=== PATIENT | female | born 1995 | race Caucasian/White ===

== ENCOUNTER 2022-10-19 13:54 | Outpatient (RCR) | payer OTHER, SELFPAY ==
[2022-10-19 15:38] LABS: Hematocrit 33.3 % (37.0-47.0); Hemoglobin 11.3 g/dL (12.0-15.0)
[2022-10-19 15:49] LABS: Glucose 1 Hour PP 50gm Dose 96 mg/dL
[2022-10-19 16:30] LABS: HIV 1/2 Ab P24 Ag Result Negative (Negative)
[2022-10-21] MEDS: RHO(D) IMMUNE GLOBULIN 300 MCG/2 ML SYRINGE IM (14:48)
== END 2023-01-17 23:59 | disposition home or self-care (01) ==
LOC: ANHLAB 13:54
PROVIDERS: Visit Provider Obstetrics & Gynecology
DX: Z11.4 Encounter for screening for human immunodeficiency virus [HIV] (principal); Z29.13 Encounter for prophylactic Rho(D) immune globulin; O36.0190 Maternal care for anti-D [Rh] antibodies, unspecified trimester, not applicable or unspecified; Z3A.00 Weeks of gestation of pregnancy not specified
CPT/HCPCS: 36415; 82947; 85014; 85018; 85461; 86703; 86850; 86900; 86901; 90384; 96372; G0432; J2790

== ENCOUNTER 2022-12-15 07:36 | Outpatient (CLI) | payer OTHER, SELFPAY ==
[2022-12-15] VITALS (9 sets, daily range): BP systolic 106–133; BP diastolic 63–91; PULSE 88–101
[2022-12-15] MEDS: TERBUTALINE SULFATE 1 MG/ML VIAL 0.25 MG SUB-Q (09:10)
--- NOTE | 2022-12-15 09:26 | WPDOBADMIT ---
Obstetrics - Admit Note Admission Note: 27 y/o G1 at 37 1/7 weeks gestation with breech presentation, here for external cephalic version. Rh neg. AVSS NST reactive TOCO: rare contractions ABD soft, nontender, gravid EXT nontender Imaging: Bedside ultrasound exam shows shona breech presentation with head on maternal right, fundal placenta, adequate AFV. Procedure: After informed consent was obtained, she was given terbutaline 0.25 mg sc x 1. Under ultrasound guidance, ECV was attempted. The breech was elevated out of the maternal pelvis. A counterclockwise somersault was attempted, then clockwise. Attempts were not successful, and attempts at ECV were abandoned. cardiac motion was normal throughout. The patient had discomfort during the procedure, but felt fine afterward. A: IUP at 37 1/7 weeks with breech presentation. Rh Neg. P: Observe with NST, administer Rhogam, then home to f/u next week. Reviewed instructions / precautions.
[2022-12-15] MEDS: RHO(D) IMMUNE GLOBULIN 300 MCG/2 ML SYRINGE IM (10:10)
== END 2022-12-15 10:18 | disposition home or self-care (01) ==
LOC: ANHOBOP 07:40 → ANHOBPP 07:40
PROVIDERS: Visit Provider Obstetrics & Gynecology
DX: O32.1XX0 Maternal care for breech presentation, not applicable or unspecified (principal); Z3A.00 Weeks of gestation of pregnancy not specified
CPT/HCPCS: 36415; 85461; 86850; 86880; 86900; 86901; 90384; 96372; 99199; J2790; J3105

== ENCOUNTER 2022-12-29 13:21 | Outpatient (CLI) | payer OTHER, SELFPAY ==
[2022-12-29 14:13] LABS: Hematocrit 32.9 % (37.0-47.0); Hemoglobin 10.6 g/dL (12.0-15.0); Mean Corpuscular HGB Conc 32.2 g/dl (32-36); Mean Corpuscular Hemoglobin 29.3 pg (26-34); Mean Corpuscular Volume 90.9 fl (80-100); Mean Platelet Volume 11.6 fl (7.4-10.4); Platelet Count Result 199 k/mm3 (150-375); Red Blood Count 3.62 M/mm3 (4.2-5.4); Red Cell Distribution Width 12.1 % (11.5-14.5); White Blood Count 10.4 K/mm3 (4.5-10.0)
[2022-12-30 10:43] LABS: Rapid Plasma Reagin Non-Reactive (NonReactive)
== END 2022-12-29 13:22 | disposition home or self-care (01) ==
LOC: ANHLAB 13:23
PROVIDERS: Visit Provider Obstetrics & Gynecology
DX: Z34.93 Encounter for supervision of normal pregnancy, unspecified, third trimester (principal); Z3A.00 Weeks of gestation of pregnancy not specified
CPT/HCPCS: 36415; 85027; 86592; 86850; 86880; 86900; 86901; 86902

== ENCOUNTER 2022-12-30 09:56 | Inpatient (IN) | payer OTHER, SELFPAY ==
[2022-12-30] VITALS (49 sets, daily range): BP systolic 104–136; BP diastolic 51–109; PULSE 53–93; RESP 14–20; TEMP 36.4–36.6; O2SAT 94–100; BMI 29.1
--- NOTE | 2022-12-30 08:38 | WPDANESEPP ---
Anes - Eval Pre Procedure Procedure: Operation Date: 12/30/22 12:00 Proposed Procedures p Section - Mayur Tinoco MD Date/Time: 12/30/22 08:38 Surgeon: Dr Tinoco Preop Diagnosis: Breech Presentation Pre Op Diagnosis: pre admit Patient Data Age: 27 Gender: F Height: Weight: Allergies Allergy/AdvReac Type Severity Reaction Status Date / Time shellfish derived Allergy Swelling Verified 12/07/22 14:32 of Lip/Tongue/Throat Home Medications Medication Instructions Recorded Confirmed Type vit#24-iron amino acid 1 tablet PO DAILY 12/07/22 12/07/22 History chelat-folic acid 30 mg-975 mcg tablet Patient hx anesthesia problems: none Family hx anesthesia problems: none Results Review: All pre-operative results and documents have been reviewed as part of the pre-operative evaluation. [facility] Past Medical History Medical History Anxiety Irritable bowel syndrome (IBS) Family History Family History Father Diabetes mellitus Mother Anemia Grandparent Diabetes mellitus Social History Social History Substance use: never Spiritual care concerns: No Exam Day of Procedure 12/30/22 08:38
--- NOTE | 2022-12-30 10:13 | LDADM ---
This patient, Makenzie Cohen, was admitted to Labor/Delivery/Recovery 120 on 12/30/22 at 09:56. Plans for labor, pain management and were discussed with patient. Patient/family oriented to hospital policies and general routines including ID bracelet, bed and alarms, visiting hours, pain management, procedures, bathroom and other care routines, personal items, smoking policy, room service/diet and guest tray routines, security routines, and visiting hours. Patient/Family are encouraged to report perceived risks to care and to ask questions if they do not understand what they are told or what they should do. See OBIX for further documentation.
[2022-12-30] MEDS: LACTATED RINGERS 1,000 ML 125 ML IV CONT ×2 (10:26→11:20)
--- NOTE | 2022-12-30 11:18 | PM.IMHP ---
H&P: HPI History of Present Illness Date/Time: 12/30/22 11:50 Chief Complaint: Here for c section Narrative: 27 y/o G1 at 39 2/7 weeks here for scheduled delivery for breech presentation. GBS bacteruria. Attempted ECV, but was unsuccessful two weeks ago. Review of Systems Review of Systems: All systems reviewed & are unremarkable except as noted in HPI and below PMFSH Past Medical History Medical History Anxiety Irritable bowel syndrome (IBS) Family History Family History Father Diabetes mellitus Mother Anemia Grandparent Diabetes mellitus Social History Social History Smoking status: Never smoker Substance use: never Lack of Transportation: No Lack of Food: Never True Current Housing: I Have Housing Concerned About Future Housing: No Difficulty Paying Gas/Electric Bills: No Difficulty Paying for Meds: No Currently Unemployed: No Education: High School Diploma/GED Difficulty w/ Childcare or Family Care: No Spiritual care concerns: No Meds Home Medications and Allergies Home Medications Medication Instructions Recorded Confirmed Type vit#24-iron amino acid 1 tablet PO DAILY 12/07/22 12/07/22 History chelat-folic acid 30 mg-975 mcg tablet Allergies Allergy/AdvReac Type Severity Reaction Status Date / Time shellfish derived Allergy Swelling Verified 12/07/22 14:32 of Lip/Tongue/Throat Vital Signs Vital Signs - 24 hr 12/30/22 10:12 12/30/22 10:28 Temperature 36.6 C Pulse Rate 87 Respiratory Rate 18 Blood Pressure 104/65 Oxygen Delivery Room Air Exam Const: Orientation/consciousness: patient oriented x3 Other: Well-developed, well-nourished female in no acute distress. Neck: Thyroid: thyroid normal Lymphatic: no lymphadenopathy noted (in neck, axilla or inguinal nodes) Resp: Effort & Inspection: normal respiratory effort Auscultation: clear to auscultation bilaterally Cardio: Rate: regular rate Rhythm: regular rhythm Heart sounds: S1 normal heart sound present and S2 normal heart sound present GI: Other: ABD: Soft, nontender, nondistended, gravid. NST reactive. Irregular contractions. No guarding or rebound tenderness. No hepatosplenomegaly. Bedside ultrasound exam by me confirms breech presentation. : General: Yes no CVA tenderness Other: External genitalia: normal female hair distribution, without lesion. Urethral meatus: no lesion, non prolapsed. Bladder: no mass, nontender Vagina: well-estrogenized, without lesion or discharge. No cystocele or rectocele. Cervix: no lesion or discharge. Uterus: small, anteverted, freely mobile, nontender Adnexa: no mass or tenderness. Anus/perineum: no lesions, nontender Back/Spine/Pelvis: Back: no CVA tenderness Skin: General skin exam: normal color and no rashes or lesions noted Neuro: General: patient oriented x3 Extrem: Other: Extremities: nontender with no edema Psych: Mental Status: mental status grossly normal Affect: normal affect Assessment and Plan Assessment and plan (1) Term : Code(s): Z34.90 - Encounter for supervision of normal , unspecified, unspecified trimester Status: Acute Assessment and Plan: A: IUP at term with persistent breech presentation. P: Offered repeat . She understands risks of surgery to include risks of anesthesia, risks of pain, infection, bleeding, blood products, thromboembolic phenomena and damage to adjacent structures such as bowel, bladder, ureters, blood vessels and nerves. She understands all these risks and elects to proceed with surgery. (2) Breech presentation of fetus: Code(s): O32.1XX0 - Maternal care for breech presentation, not applicable or unspecified
--- NOTE | 2022-12-30 11:52 | WPDHPUPDATE1 ---
History and Physical Update Update Date/Time: 12/30/22 11:52 History and Physical has been reviewed, including an updated exam of the patient. There are NO changes in the patient's condition. Risks, benefits, and alternatives have been discussed and questions answered. Patient agrees to proceed with procedure.
--- NOTE | 2022-12-30 11:54 | WPDANESEPPF ---
Anes - Initial Pre Proc Eval Procedure: Operation Date: 12/30/22 12:00 Proposed Procedures p Section - Mayur Tinoco MD Date/Time: 12/30/22 11:54 Surgeon: Mayur Tinoco MD Pre Op Diagnosis: c/s Patient Data Age: 27 Gender: F Height: 1.73 m Weight: 87 kg Last Vital Signs Temp 36.6 C 12/30/22 10:28 Pulse 87 12/30/22 10:28 Resp 18 12/30/22 10:28 BP 104/65 12/30/22 10:28 O2 Del Method Room Air 12/30/22 10:12 Allergies Allergy/AdvReac Type Severity Reaction Status Date / Time shellfish derived Allergy Swelling Verified 12/07/22 14:32 of Lip/Tongue/Throat Home Medications Medication Instructions Recorded Confirmed Type vit#24-iron amino acid 1 tablet PO DAILY 12/07/22 12/07/22 History chelat-folic acid 30 mg-975 mcg tablet Patient hx anesthesia problems: none Family hx anesthesia problems: none Results Review: All pre-operative results and documents have been reviewed as part of the pre-operative evaluation. [facility] Past Medical History Medical History Anxiety Irritable bowel syndrome (IBS) Family History Family History Father Diabetes mellitus Mother Anemia Grandparent Diabetes mellitus Social History Social History Smoking status: Never smoker Substance use: never Lack of Transportation: No Lack of Food: Never True Current Housing: I Have Housing Concerned About Future Housing: No Difficulty Paying Gas/Electric Bills: No Difficulty Paying for Meds: No Currently Unemployed: No Education: High School Diploma/GED Difficulty w/ Childcare or Family Care: No Spiritual care concerns: No Anes - Eval Final PreProcedure Day of Procedure 12/30/22 11:54 Patient weight: overweight Heart: regular rate and rhythm Lungs: clear to auscultation Airway: Mallampati scale class 1 Neurological: alert and oriented Last oral intake: >/= 8 hours ASA classification: II Emergent: no Anesthetic plan: proceed Anesthesia type and monitoring: regional spinal and standard monitoring Results Review: All pre-operative results and documents have been reviewed as part of the pre-operative evaluation. Informed Consent: The patient's anesthetic plan and its attendant risks and benefits were discussed with the patient/family/POA. Questions were solicited and answers provided to the satisfaction of the patient/family/POA.
[2022-12-30] MEDS: ceFAZolin 2 GM/D5W 50 ML 2 GM/50 ML BAG IVPB (12:05)
--- NOTE | 2022-12-30 12:57 | PM.OBPRVD ---
OB - Delivery Note Procedure Delivery date: 12/30/22 Procedure: Procedures Operation Date: 12/30/22 12:00 <No data on this case meets the specified criteria> Primary low transverse delivery Events: Breech Presentation and Positive Group B Strep (GBS) Delivery monitor: External FHT and External Uterine Route of delivery: Specimen: Yes (cord blood) Quantitative Blood Loss (ml): 320 Anesthesia type: Spinal Disposition: PACU Complications: None Narrative: The patient was taken to the operating room where she was prepared and draped in the usual sterile fashion in dorsal supine position with a leftward tilt. She received cefazolin preoperatively. Spinal anesthesia was found to be adequate. A Pfannenstiel skin incision was made and carried through to the underlying layer of the fascia. The fascia was incised in the midline and the incision was extended laterally. The fascia was dissected free of the underlying rectus muscles. The rectus muscles were in the midline. The peritoneum was identified, tented up and entered sharply. The peritoneal incision was extended superiorly and inferiorly with good visualization of the bladder. The bladder blade was placed. The vesicouterine peritoneum was identified, tented up and entered sharply. The incision was extended laterally and the bladder flap was developed. The bladder blade was replaced. The uterus was then incised sharply in a transverse fashion along the lower uterine segment. The incision was extended laterally. The infant's breech was delivered to the level of the scapulae. The arms were swept across the chest and delivered. The head was gently flexed and easily delivered. The nose and mouth were bulb suctioned. After a delay, the cord was clamped and cut. The was handed off the field. Cord blood was collected. The placenta was removed manually and was passed off the field. The uterus was exteriorized and cleared of all clots and debris. The uterine incision was reapproximated using 0 Monocryl in a running, locked fashion. A second, imbricating layer of the same suture was run. Excellent hemostasis resulted as did excellent reapproximation of the normal anatomy. The uterus was returned the abdomen. The pelvis was irrigated copiously with warmed normal saline. Rigorous hemostasis was assured. The fascial layer was reapproximated using 0 Vicryl in a running fashion. The skin was closed with a running, subcuticular stitch of 4 0 Vicryl. Dermaflex was applied externally. Sponge, lap, needle and instrument counts were correct. The patient was taken to the recovery room in stable condition. The infant went to the nursery in stable condition. I was present and scrubbed the entire procedure. Baby Date of : 12/30/22 Time of : 12:29 Weeks of gestation at delivery: 39 Infant gender: Female Weight (pounds): 7 Weight (ounces): 9 presentation: shona breech Placenta delivery description: Manual Removal and Normal Configuration Cord Vessel Description: 3 Vessels and Delayed Cord Clamping score one minute: 8 score five minutes: 9
--- NOTE | 2022-12-30 13:00 | PM.OBDSVD ---
DS: Admitting Diagnosis Discharge Date 01/03/23 Admitting Diagnosis IUP at 39 2/7 weeks Breech presentation GBS bacteruria DS: Discharge Diagnosis Discharge Diagnosis (1) delivery delivered: Code(s): O82 - Encounter for delivery without indication Status: Acute (2) GBS bacteriuria: Code(s): R82.71 - Bacteriuria Status: Acute OB - DS: Summary OB Procedures : NST and Ultrasound OB Procedures Intrapartum: OB Procedures: : None Peripartum Data Procedures: Procedures Operation Date: 12/30/22 12:00 <No data on this case meets the specified criteria> Primary LTCS Time Spent with Patient Time attestation: Total time spent providing and/or coordinating discharge services: Discharge Plan Discharge Attending physician on discharge: Mayur Tinoco Discharging Clinician: Mayur Tinoco Patient Disposition: Home, Self-Care Activity: may shower, may drive after 2 weeks and pelvic rest Diet: regular Wound Care Instructions: incision open to air Discharge Instructions: Call or return if temperature above 100.4? F, increased abdominal pain, increased vaginal bleeding or any new problems. Stand Alone Forms: General Discharge Information Follow-up/Referrals: Mayur Tinoco MD [Physician] - 4 Weeks Discharge Medications: New hydrocodone-acetaminophen 5-325 mg tablet 1 - 2 tablet PO Q6H PRN (Reason: pain) Qty: 30 0RF ibuprofen 600 mg tablet 600 mg PO Q6H PRN (Reason: cramps) Qty: 30 0RF ferrous sulfate 325 mg (65 mg iron) tablet 325 mg PO DAILY Qty: 30 0RF Continued Complete 30-975 mg-mcg Tablet 1 tablet PO DAILY Date of admission: 12/30/22 09:56 Primary Care Provider: PHYSICIAN,PROFESSOR OF BIBLICAL STUDIES Admitting Provider: Mayur Tinoco Attending physician on admission: Mayur Tinoco Condition: Stable
[2022-12-30] MEDS: fentaNYL CITRATE INJ (*CRX) 100 MCG/2 ML VIAL 25 MCG IV PUSH (13:10)
[2022-12-30] MEDS: OXYTOCIN 30 UNITS/NS 500 ML 30 UNITS/500 ML BAG 125 UNITS IV CONT (15:00)
--- NOTE | 2022-12-30 15:15 | PC.NURSE ---
Patient transferred to post room #284 via stretcher. Support person present. Oriented to unit, room, information board, rooming in, admission packet and security measures. Patient verbalizes understanding.
[2022-12-30] MEDS: ONDANSETRON INJ 4 MG/2 ML VIAL IV PUSH ×2 (15:18→19:00)
[2022-12-30] MEDS: LIDOCAINE 5% PATCH 1 PATCH TRANSDERM (17:06)
[2022-12-30] MEDS: KETOROLAC 30 MG/ML VIAL (*BKC) IV PUSH (17:06)
[2022-12-30] MEDS: DEXTROSE 5%/0.45% SOD CHL 1,000 ML 125 ML IV CONT (19:00)
[2022-12-30] MEDS: HYDROcodone/acetaminophen (*CRX) 5-325 MG TABLET 1 TAB PO (19:00)
[2022-12-31] MEDS: IBUPROFEN 600 MG TABLET PO ×3 (00:35→16:49)
[2022-12-31 03:10] VITALS: BP 116/69; PULSE 72; RESP 18; TEMP 36.9; O2SAT 100
[2022-12-31] MEDS: HYDROcodone/acetaminophen (*CRX) 5-325 MG TABLET 1 TAB PO ×3 (03:10→21:10)
[2022-12-31 04:59] LABS: Basophils Percent Auto 0.1 % (0.2-1.2); Eosinophils Percent Auto 0.2 % (0-4.4); Hematocrit 27.4 % (37.0-47.0); Hemoglobin 8.8 g/dL (12.0-15.0); Immature Granulocyte Absolute 0.11 K/mm3 (0.00-0.031); Immature Granulocyte Percent A 0.7 % (0-0.5); Lymphocytes Absolute Auto 1.94 K/mm3 (0.9-3.2); Lymphocytes Percent Auto 12.6 % (18.3-44.2); Mean Corpuscular HGB Conc 32.1 g/dl (32-36); Mean Corpuscular Hemoglobin 29.6 pg (26-34); Mean Corpuscular Volume 92.3 fl (80-100); Mean Platelet Volume 11.6 fl (7.4-10.4); Monocytes Absolute Auto 1.1 K/mm3 (0.1-0.6); Monocytes Percent Auto 6.9 % (2.6-8.5); Neutrophils Absolute Auto 12.2 K/mm3 (1.3-6.7); Neutrophils Percent Auto 79.5 % (45.5-73.1); Platelet Count Result 176 k/mm3 (150-375); Red Blood Count 2.97 M/mm3 (4.2-5.4); Red Cell Distribution Width 12.2 % (11.5-14.5); White Blood Count 15.4 K/mm3 (4.5-10.0)
[2022-12-31 08:15] VITALS: BP 114/63; PULSE 101; RESP 18; TEMP 37.1; O2SAT 100
[2022-12-31] MEDS: DOCUSATE SODIUM 100 MG CAPSULE PO ×2 (08:25→16:49)
[2022-12-31] MEDS: POLYSACCHARIDE IRON COMPLEX 150 MG CAPSULE PO ×2 (08:25→16:49)
[2022-12-31] MEDS: SIMETHICONE 80 MG TAB.CHEW PO (08:25)
[2022-12-31] MEDS: MULTIVIT/MIN/PREN/FOL AC/IRON TABLET 1 TAB PO (08:25)
--- NOTE | 2022-12-31 09:31 | WPDANLDPN2 ---
Anes-Prog Note L&D Date/Time: 12/31/22 09:31 Comfortable throughout: section Neuraxial method: spinal Epidural/Spinal procedure site: clean & non-tender Neuro status: Neuro function grossly intact. Cardiovascular status: normal Respiratory status: normal Airway patency: baseline Mental status: baseline Post-Op hydration status: normal Vital Signs: Last Vital Signs Temp 36.9 C 12/31/22 03:10 Pulse 72 12/31/22 03:10 Resp 18 12/31/22 03:10 BP 116/69 12/31/22 03:10 Pulse Ox 100 12/31/22 03:10 O2 Del Method Room Air 12/31/22 03:10 Pain score (VAS): 2/10 I/O: Intake & Output 12/30/22 12/31/22 12/31/22 23:59 07:59 15:59 Intake Total 250 2500 Output Total 1800 Balance 250 700 Post-procedural complaints: none Patient feedback: Patient satisfied with anesthetic care.
--- NOTE | 2022-12-31 09:32 | WPDANLDNPN2 ---
Anes-Prog Note L&D-Neuraxial Date/Time: 12/31/22 09:32 Neuraxial medications: intrathecal PF morphine Opiod-related complaints: none Patient feedback: Patient satisfied with post-operative pain management.
[2022-12-31] MEDS: RHO(D) IMMUNE GLOBULIN 300 MCG/2 ML SYRINGE IM (11:04)
[2022-12-31 11:57] VITALS: BP 111/59; PULSE 101; RESP 16; TEMP 36.6; O2SAT 100
--- NOTE | 2022-12-31 16:13 | PC.NURSE ---
[id number] Introductions were made, then consulted with patient to assess needs related to . Mother led the conversation with her?plans to feed?her infant and the?experience so far. Mother works well with her with encouragement and education. Encouraged understanding of the benefits of skin to skin (demonstrating unwrapping and placing upright on her chest), stimulating with massage touch, changing positions to encourage wakefulness, how to watch for early feeding cues, responsive feeding, feeding on demand (aiming for 8-12 times in 24 hours, about every 2-3 hours), milk production, building/maintaining a milk supply, duration of feeding, signs of adequate intake/output and how to record on the feeding sheet. Reviewed positioning and ear, shoulder, hip alignment, supporting the breast to facilitate a deep latch, asymmetrical latch (off-center), leading with the chin with a big, open, wide gape and body close to mother. Infant latched optimally to the left breast in football position. Education given to mother of how to visualize suck/swallow and listen for drinking at the breast. Infant was able to maintain latch without discomfort to mother. There were several attempts as infant at times would latch shallow and hurt mother's nipple. Nipple care reviewed with optimal latch and good positioning with no misshaped nipple after detaching infant from the breast. We practiced latching infant to the right breast using cross cradle hold, then settled with an optimal latch with the football hold at the right breast. Mother denied pain. Reviewed with mother how to visualize swallowing, how to detach if there's pain, latching deeply changing positioning for comfort and more swallowing for the infant. Reviewed good handwashing when or touching the breast/nipples to prevent infection. Resources used to facilitate learning were used with the tool, mom and baby guide. Mother voiced understanding of skin to skin, stimulating with massage touch, responsive feedings, talking to infant to encourage if it has been 2 -2.5 hours since the start of the last , to call if infant does not latch, or if there is discomfort with . Resources provided for inpatient/outpatient with feeding sheet, the name written on the communication board and the mom/baby guide. Parents voiced understanding of information, demonstrated learning and will call if there is a request for assistance. Reported to the Primary RN.
[2022-12-31] MEDS: LIDOCAINE 5% PATCH 1 PATCH TRANSDERM ×2 (17:00→21:10)
--- NOTE | 2022-12-31 17:26 | P.PNOB_ITS ---
OB - PN: Subj Subjective Date/time seen: 12/31/22 17:26 Narrative: Pain OK. Tolerating diet. OB - PN: Obj Data Labs 12/31/22 03:10 Labs: Laboratory Results - last 24 hr 12/31/22 03:10 WBC 15.4 H RBC 2.97 L Hgb 8.8 L Hct 27.4 L MCV 92.3 MCH 29.6 MCHC 32.1 RDW 12.2 Plt Count 176 MPV 11.6 H Immature Gran % (Auto) 0.7 H Neut % (Auto) 79.5 H Lymph % (Auto) 12.6 L [place] % (Auto) 6.9 Eos % (Auto) 0.2 Baso % (Auto) 0.1 L Lymph # (Auto) 1.94 [place] # (Auto) 1.1 H Eos # (Auto) 0.0 Baso # (Auto) 0.0 Abs Immat Gran (auto) 0.11 H Absolute Neuts (auto) 12.2 H Absolute Nucleated RBC 0.0 Nucleated RBC % 0.0 Blood Type AB Negative Antibody Screen TNP Screen Negative Baby's Blood Type B pos Baby's TONJA Positive Doses of RhIg Required 1 OB - PN A/P Plan day: 1 Comments: A: POD#1, doing well. P: Routine care. Exam Narrative: AVSS I/O OK ABD soft, nontender, fundus firm. Incision c/d/i. EXT nontender
[2022-12-31 21:10] VITALS: BP 119/71; PULSE 98; RESP 18; TEMP 36.7
[2023-01-01] MEDS: IBUPROFEN 600 MG TABLET PO ×4 (00:10→20:10)
[2023-01-01] MEDS: HYDROcodone/acetaminophen (*CRX) 5-325 MG TABLET 1 TAB PO ×7 (00:10→20:10)
[2023-01-01] MEDS: POLYSACCHARIDE IRON COMPLEX 150 MG CAPSULE PO ×2 (07:02→16:44)
[2023-01-01] MEDS: DOCUSATE SODIUM 100 MG CAPSULE PO ×2 (07:02→16:44)
[2023-01-01] MEDS: MULTIVIT/MIN/PREN/FOL AC/IRON TABLET 1 TAB PO (07:02)
[2023-01-01 08:10] VITALS: BP 119/57; PULSE 98; RESP 16; TEMP 36.5; O2SAT 100
--- NOTE | 2023-01-01 09:09 | PM.OBPNVD ---
OB - PN: Subj Subjective Date/time seen: 01/01/23 09:09 Narrative: Pain OK. Tolerating diet. OB - PN: Obj Data Labs 12/31/22 03:10 Labs: Laboratory Results - last 24 hr 12/31/22 03:10 Blood Type AB Negative Antibody Screen TNP Screen Negative Baby's Blood Type B pos Baby's TONJA Positive Doses of RhIg Required 1 OB - PN A/P Plan Comments: A: POD#2, doing well. P: Routine care. Exam Narrative: AVSS I/O OK ABD soft, nontender, fundus firm. Incision c/d/i. EXT nontender
[2023-01-01 20:06] VITALS: BP 106/64; PULSE 72; RESP 18; TEMP 36.6; O2SAT 100
[2023-01-01] MEDS: LIDOCAINE 5% PATCH 1 PATCH TRANSDERM (22:30)
[2023-01-02] MEDS: IBUPROFEN 600 MG TABLET PO ×3 (03:30→20:20)
[2023-01-02 08:05] VITALS: BP 113/70; PULSE 92; RESP 16; RESP 18; TEMP 36.3; O2SAT 99
[2023-01-02] MEDS: ACETAMINOPHEN 325 MG TABLET 650 MG PO ×2 (08:24→16:35)
[2023-01-02] MEDS: POLYSACCHARIDE IRON COMPLEX 150 MG CAPSULE PO ×2 (08:24→16:34)
[2023-01-02] MEDS: MULTIVIT/MIN/PREN/FOL AC/IRON TABLET 1 TAB PO (08:24)
[2023-01-02] MEDS: DOCUSATE SODIUM 100 MG CAPSULE PO ×2 (08:24→16:35)
--- NOTE | 2023-01-02 09:31 | PM.OBPNVD ---
OB - PN: Subj Subjective Date/time seen: 01/02/23 09:31 Narrative: Pain OK. Tolerating diet. OB - PN: Obj Data Labs 12/31/22 03:10 Labs: Laboratory Results - last 24 hr 12/31/22 03:10 Blood Type AB Negative Antibody Screen TNP Screen Negative Baby's Blood Type B pos Baby's TONJA Positive Doses of RhIg Required 1 OB - PN A/P Plan Comments: A: POD#3, doing well. P: Routine care. Time Spent With Patient Time with patient: less than 15 minutes Exam Narrative: AVSS I/O OK ABD soft, nontender, fundus firm. Incision c/d/i. EXT nontender
[2023-01-02 15:33] VITALS: BP 107/56; PULSE 97; RESP 18; TEMP 36.6; O2SAT 98
[2023-01-02 19:28] VITALS: BP 126/77; PULSE 78; RESP 18; TEMP 37.1; O2SAT 100
[2023-01-03] MEDS: ACETAMINOPHEN 325 MG TABLET 650 MG PO (08:08)
[2023-01-03] MEDS: DOCUSATE SODIUM 100 MG CAPSULE PO (08:09)
[2023-01-03] MEDS: POLYSACCHARIDE IRON COMPLEX 150 MG CAPSULE PO (08:09)
[2023-01-03] MEDS: MULTIVIT/MIN/PREN/FOL AC/IRON TABLET 1 TAB PO (08:09)
[2023-01-03 08:20] VITALS: BP 118/77; PULSE 74; RESP 16; TEMP 36.6; O2SAT 100
--- NOTE | 2023-01-03 09:10 | PM.OBPNVD ---
OB - PN: Subj Subjective Date/time seen: 01/03/23 09:10 Narrative: Pain OK. Tolerating diet. Would like to go home. OB - PN: Obj Data Labs 12/31/22 03:10 OB - PN A/P Plan Comments: A: POD#4, doing well. P: Home to f/u 4 weeks. Exam Narrative: AVSS ABD soft, nontender, fundus firm. Incision c/d/i. EXT nontender
--- NOTE | 2023-01-03 10:00 | PC.NURSE ---
Patient viewed the discharge video Mother & Baby Care, The First Two Weeks . Patient was given the opportunity and encouraged to ask questions. Patient verbalized understanding of information shared and has been given the mother/baby guide for home reference.
[2023-01-05 14:18] VITALS: BP 129/69; PULSE 96; RESP 18; TEMP 36.6; O2SAT 100
== END 2023-01-03 13:30 | disposition home or self-care (01) | DRG 788 ==
LOC: ANHLDR 13:02 → ANHOB2 15:42
PROVIDERS: Admitting Provider Obstetrics & Gynecology; Visit Provider Obstetrics & Gynecology
PROC: 10D00Z1 Extraction of Products of Conception, Low, Open Approach (ICD-10-PCS; CPT 59514; principal; 2022-12-30 12:00)
DX: O34.219 Maternal care for unspecified type scar from previous cesarean delivery (principal); Z23 Encounter for immunization; O32.1XX0 Maternal care for breech presentation, not applicable or unspecified; O99.824 Streptococcus B carrier state complicating childbirth; Z3A.39 39 weeks gestation of pregnancy; Z37.0 Single live birth
CPT/HCPCS: 36415; 85025; 85461; 86850; 86900; 86901; 90384; 90471; 90686; A9270; G0008; J0690; J1100; J1885; J2274; J2405; J2590; J2790; J3010; J7120

== ENCOUNTER 2024-09-11 14:10 | Outpatient (RCR) | payer OTHER, SELFPAY ==
[2024-09-11 15:29] LABS: Hematocrit 32.0 % (37.0-47.0); Hemoglobin 10.5 g/dL (12.0-15.0)
[2024-09-11 15:41] LABS: Glucose 1 Hour PP 50gm Dose 118 mg/dL
[2024-09-11 16:09] LABS: Syphilis IgG/IgM Antibody Non-Reactive (Nonreactive)
[2024-09-11 16:23] LABS: HIV 1/2 Ab P24 Ag Result Negative (Negative)
== END 2024-12-10 23:59 | disposition home or self-care (01) ==
LOC: ANHLAB 14:10
PROVIDERS: Visit Provider Obstetrics & Gynecology
DX: Z11.4 Encounter for screening for human immunodeficiency virus [HIV] (principal); Z11.3 Encounter for screening for infections with a predominantly sexual mode of transmission; Z29.13 Encounter for prophylactic Rho(D) immune globulin; O36.0190 Maternal care for anti-D [Rh] antibodies, unspecified trimester, not applicable or unspecified; Z3A.00 Weeks of gestation of pregnancy not specified
CPT/HCPCS: 36415; 82947; 85014; 85018; 85461; 86593; 86703; 86850; 86900; 86901; G0432

== ENCOUNTER 2024-10-02 14:01 | Outpatient (RCR) | payer OTHER, SELFPAY ==
[2024-10-02] MEDS: RHO(D) IMMUNE GLOBULIN 300 MCG/2 ML SYRINGE IM (19:00)
== END 2024-12-31 23:59 | disposition home or self-care (01) ==
LOC: ANHLAB 14:01
PROVIDERS: Visit Provider Obstetrics & Gynecology
DX: Z34.90 Encounter for supervision of normal pregnancy, unspecified, unspecified trimester (principal); Z29.13 Encounter for prophylactic Rho(D) immune globulin
CPT/HCPCS: 36415; 85461; 86850; 86900; 86901; 90384; 96372; J2790

== ENCOUNTER 2024-11-08 10:16 | Outpatient (CLI) | payer OTHER, SELFPAY ==
--- NOTE | ~2024-11-08 | US_ITS ---
EXAMINATION: US OB follow up DATE: 11/08/2024 10:40 INDICATION: Maternal care for mL presentation of fetus during third trimester TECHNIQUE: Real-time ultrasound of the pelvis was performed. The interpreting radiologist was not present for the study. COMPARISON: None. FINDINGS: There is a single living fetus in vertex presentation. The placenta is posterior fundal and not low-lying. heart rate is 161 beats per minute (bpm). Decreased amniotic fluid index of 5.1 cm (5th%-95%: 7.5-84.4 cm at 37 weeks estimated gestational age). The following biometric data were obtained: BPD: 9.5 cm -> 39 weeks 0 days Head circumference: 34.2 cm -> 39 weeks 3 days Abdominal circumference: 33.6 cm -> 37 weeks 3 days Femur length: 7.3 cm -> 37 weeks 3 days These measurements are concordant. Head circumference to abdominal circumference ratio: 1.02 (normal range 0.89-1.06). Estimated weight: 3332 g (+/-) 500 g or 7 lbs. 6 oz. (+/-) 1 lb. 2 oz. IMPRESSION: 1. Single living fetus in vertex presentation with heart rate of 161 bpm. 2. Gestational age by ultrasound of 38 weeks 2 day(s) +/- 2 week(s) 5 day(s) with ultrasound estimated date of delivery (MAURI) of 11/20/2024. Estimated weight is 76th percentile by Hadlock criteria when 12/08/2024 is used as the MAURI. Please correlate with clinical information or earlier ultrasounds for most accurate MAURI. 3. Oligohydramnios with decreased amniotic fluid index of 5.[address] Matta discussed these findings with Dr. Tinoco at 11:30 AM. Reviewed, dictated and finalized at location A. IMPRESSION: 1. Single living fetus in vertex presentation with heart rate of 161 bpm. 2. Gestational age by ultrasound of 38 weeks 2 day(s) +/- 2 week(s) 5 day(s) wi th ultrasound estimated date of delivery (MAURI) of 11/20/2024. Estimated genny ght is 76th percentile by Hadlock criteria when 12/08/2024 is used as the MAURI. P lease correlate with clinical information or earlier ultrasounds for most accur ate MAURI. 3. Oligohydramnios with decreased amniotic fluid index of 5.[address] Matta discussed these findings with Dr. Tinoco at 11:30 AM.
== END 2024-11-08 10:17 | disposition home or self-care (01) ==
LOC: MICIMG 10:16
PROVIDERS: PCP Nurse Practitioner Obstetrics & Gynecology; Visit Provider Nurse Practitioner Obstetrics & Gynecology
DX: O32.9XX0 Maternal care for malpresentation of fetus, unspecified, not applicable or unspecified (principal); Z3A.38 38 weeks gestation of pregnancy
CPT/HCPCS: 76816

== ENCOUNTER 2024-11-08 12:42 | Outpatient (RCR) | payer OTHER, SELFPAY ==
[2024-11-08 12:53] VITALS: BP 122/82; PULSE 108
[2024-11-08 13:00] VITALS: BP 117/78; PULSE 109
[2024-11-08 13:15] VITALS: BP 122/79; PULSE 109
[2024-11-08 15:54] VITALS: BP 122/79; PULSE 114
== END 2024-11-16 13:44 | disposition other institution (70) ==
LOC: ANHOBOP 12:42
PROVIDERS: Visit Provider Obstetrics & Gynecology
DX: O41.03X0 Oligohydramnios, third trimester, not applicable or unspecified (principal); Z3A.37 37 weeks gestation of pregnancy
CPT/HCPCS: 59025

== ENCOUNTER 2024-11-13 06:33 | Inpatient (IN) | payer OTHER, SELFPAY ==
[2024-11-13] VITALS (156 sets, daily range): BP systolic 94–162; BP diastolic 46–96; PULSE 39–231; RESP 16; TEMP 36.6–37.2; O2SAT 89–100; BMI 30.8
[2024-11-13 07:32] LABS: Hematocrit 29.8 % (37.0-47.0); Hemoglobin 9.6 g/dL (12.0-15.0); Immature Granulocyte Percent A 0.8 % (0-0.5); Lymphocytes Absolute Auto 2.23 K/mm3 (0.9-3.2); Mean Corpuscular HGB Conc 32.2 g/dl (32-36); Mean Corpuscular Hemoglobin 27.5 pg (26-34); Mean Corpuscular Volume 85.4 fl (80-100); Nucleated Red Blood Cells Absolute Auto 0.000 K/mm3 (0.0-0.012); Nucleated Red Blood Cells Perc 0.0 % (0.0-0.2); Platelet Count Result 175 k/mm3 (150-375); Red Blood Count 3.49 M/mm3 (4.2-5.4); White Blood Count 10.6 K/mm3 (4.5-10.0)
[2024-11-13] MEDS: LACTATED RINGERS 1,000 ML 125 ML IV CONT (08:03)
[2024-11-13] MEDS: AMPICILLIN SODIUM 2 GM in SODIUM CHLORIDE 0.9% IV 100 ML 200 ML IVPB (08:04)
[2024-11-13 08:09] LABS: Syphilis IgG/IgM Antibody Non-Reactive (Nonreactive)
[2024-11-13] MEDS: OXYTOCIN 30 UNITS/NS 500 ML 30 UNITS/500 ML BAG IV CONT (08:29)
--- NOTE | 2024-11-13 09:12 | P.HP_ITS ---
H&P: HPI History of Present Illness Date/Time: 11/13/24 09:12 Chief Complaint: Here for induction of labor Narrative: 29 y/o at 37 5/7 weeks with oligohydramnios, here for induction of labor. She has a history of CS for breech and strongly desires TOLAC. We have had numerous discussions regarding risks associated with vaginal delivery versus repeat . Also GBS bacteruria in . Review of Systems Review of Systems: All systems reviewed & are unremarkable except as noted in HPI and below PMFSH Past Medical History Medical History Anxiety Irritable bowel syndrome (IBS) Surgical History Surgical History History of delivery Family History Family History Father Diabetes mellitus Mother Anemia Grandparent Diabetes mellitus Social History Social History Smoking status: Never smoker Second hand tobacco smoke exposure: No Substance use: never Lack of Transportation: No Lack of Food: Never True Current Housing: I Have Housing Concerned About Future Housing: No Difficulty Paying Gas/Electric Bills: No Difficulty Paying for Meds: No Currently Unemployed: No Education: High School Diploma/GED Difficulty w/ Childcare or Family Care: No Spiritual care concerns: No Meds Home Medications and Allergies Home Medications ?Medication ?Instructions ?Recorded ?Confirmed ?Type vit 24-iron amino acid 1 tablet PO DAILY 11/2011/12/24 History chelat-folic acid 30 mg-975 mcg tablet acetaminophen 500 mg oral powder 500 mg PO Q6H PRN gissell n 10/02/24 11/12/24 History packet (Tylenol Extra Strength) Allergies Allergy/AdvReac Type Severity Reaction Status Date / Time shellfish derived Allergy Swelling Verified 11/09/24 10:08 of Lip/Tongue/Throat Vital Signs Vital Signs - 24 hr 11/13/24 07:25 11/13/24 07:30 11/13/24 07:52 Temperature 97.9 F Pulse Rate 95 Blood Pressure 115/64 Pulse Oximetry Oxygen Delivery Room Air 11/13/24 08:01 11/13/24 08:08 11/13/24 08:13 Temperature Pulse Rate 99 Blood Pressure 107/67 Pulse Oximetry 99 100 Oxygen Delivery 11/13/24 08:16 11/13/24 08:18 11/13/24 08:23 Temperature Pulse Rate 104 H Blood Pressure 103/64 Pulse Oximetry 100 100 Oxygen Delivery 11/13/24 08:28 11/13/24 08:31 11/13/24 08:33 Temperature Pulse Rate 93 Blood Pressure 110/66 Pulse Oximetry 100 99 Oxygen Delivery 11/13/24 08:38 11/13/24 08:43 11/13/24 08:46 Temperature Pulse Rate 95 Blood Pressure 109/72 Pulse Oximetry 100 100 100 Oxygen Delivery 11/13/24 08:51 11/13/24 08:58 11/13/24 08:59 Temperature 98 F Pulse Rate 90 Blood Pressure 110/92 H Pulse Oximetry 100 100 Oxygen Delivery 11/13/24 09:01 11/13/24 09:03 11/13/24 09:08 Temperature Pulse Rate 90 Blood Pressure 121/71 Pulse Oximetry 100 100 Oxygen Delivery Exam Const: Other: Well-developed, well-nourished female in no acute distress. Neck: Other: Neck: Trachea midline, no thyromegaly or masses. Resp: Other: Lungs: Normal respiratory effort. Clear to auscultation bilaterally. Cardio: Other: Heart: Regular rate and rhythm with normal S1-S2. GI: Other: ABD: Soft, nontender, nondistended, gravid. No guarding or rebound tenderness. No hepatosplenomegaly. NST reactive. TOCO: irregular contractions. : Other: Cervix:3-4/80/-2. AROM with clear fluid. Vertex. IUPC placed. Back/Spine/Pelvis: Other: Back: No CVA tenderness. Skin: Other: Skin: No lesions, rashes or ulcers noted. Extrem: Other: Extremities: nontender with no edema Psych: Other: Mental status grossly normal, with normal mood and affect. H&P: Results Labs Labs: Short CBC 11/13/24 Range/Units 07:17 WBC 10.6 H (4.5-10.0) K/mm3 Hgb 9.6 L (12.0-15.0) g/dL Hct 29.8 L (37.0-47.0) % Plt Count 175 (150-375) k/mm3 Assessment and Plan Assessment and plan (1) : Qualifiers: Weeks of gestation: 37 weeks Qualified Code(s): Z3A.37 - 37 weeks gestation of Code(s): Z34.90 - Encounter for supervision of normal , unspecified, unspecified trimester Status: Acute Assessment and Plan: A: IUP at 37 5/7 weeks with oligohydramnios. GBS pos. Prior , strongly desires TOLAC. P: Again, reviewed risks / benefits / alternatives, including discussion of risks of uterine rupture with associated risks of maternal and morbidity and mortality. She elects to proceed with induction of labor. Ampicillin for GBS. Will monitor closely. (2) GBS bacteriuria: Code(s): R82.71 - Bacteriuria Status: Acute (3) History of delivery: Code(s): Z98.891 - History of uterine scar from previous surgery Status: Acute (4) Oligohydramnios: Qualifiers: Fetus number: single or unspecified fetus Trimester: third trimester Qualified Code(s): O41.03X0 - Oligohydramnios, third trimester, not applicable or unspecified Code(s): O41.00X0 - Oligohydramnios, unspecified trimester, not applicable or unspecified Status: Acute
[2024-11-13] MEDS: AMPICILLIN SODIUM 1 GM in SODIUM CHLORIDE 0.9% IV 50 ML 100 ML IVPB ×2 (12:24→16:05)
--- NOTE | 2024-11-13 12:44 | PM.OBPNLAB ---
Pain Control Date/time seen: 11/13/24 12:44 Comments: Epidural placed. She is starting to feel some pain relief. Pelvic Exam Dilation (cm): 5 Effacement (%): 90 station: -2 Contractions Contraction frequency: 4 Status status: Category l Comments: Contractions not yet adequate by IUPC monitoring. Assessment and Plan Pitocin rate (mU/min): 2 Comments: She would like to continue labor.
--- NOTE | 2024-11-13 13:01 | P.PNAN_ITS ---
Anes - Initial Pre Proc Eval Date/Time: 11/13/24 13:01 Surgeon: Mayur Tinoco MD Pre Op Diagnosis: IOL Patient Data Age: 29 Gender: F Height: 1.73 m Weight: 92 kg Last Vital Signs Temp 37.2 C 11/13/24 11:01 Pulse 92 11/13/24 12:58 BP 111/61 11/13/24 12:58 Pulse Ox 100 11/13/24 12:58 O2 Del Method Room Air 11/13/24 07:25 Allergies Allergy/AdvReac Type Severity Reaction Status Date / Time shellfish derived Allergy Swelling Verified 11/09/24 10:08 of Lip/Tongue/Throat Home Medications ?Medication ?Instructions ?Recorded ?Confirmed ?Type vit 24-iron amino acid 1 tablet PO DAILY 11/2011/12/24 History chelat-folic acid 30 mg-975 mcg tablet acetaminophen 500 mg oral powder 500 mg PO Q6H PRN gissell n 10/02/24 11/12/24 History packet (Tylenol Extra Strength) Laboratory Tests 11/13/24 11/13/24 11/13/24 07:17 07:17 07:17 WBC 10.6 H K/mm3 (4.5-10.0) RBC 3.49 L M/mm3 (4.2-5.4) Hgb 9.6 L g/dL (12.0-15.0) Hct 29.8 L % (37.0-47.0) MCV 85.4 fl (80-100) MCH 27.5 pg (26-34) MCHC 32.2 g/dl (32-36) RDW 12.8 % (11.5-14.5) Plt Count 175 k/mm3 (150-375) MPV 10.5 H fl (7.4-10.4) Immature Gran % (Auto) 0.8 H % (0-0.5) Neut % (Auto) 68.4 % (45.5-73.1) Lymph % (Auto) 21.0 % (18.3-44.2) [place] % (Auto) 6.9 % (2.6-8.5) Eos % (Auto) 2.7 % (0-4.4) Baso % (Auto) 0.2 % (0.2-1.2) Lymph # (Auto) 2.23 K/mm3 (0.9-3.2) [place] # (Auto) 0.7 H K/mm3 (0.1-0.6) Eos # (Auto) 0.3 K/mm3 (0-0.3) Baso # (Auto) 0.0 K/mm3 (0.0-0.1) Abs Immat Gran (auto) 0.09 H K/mm3 (0.00-0.031) Absolute Neuts (auto) 7.3 H K/mm3 (1.3-6.7) Absolute Nucleated RBC 0.000 K/mm3 (0.0-0.012) Nucleated RBC % 0.0 % (0.0-0.2) Syphilis IgG/IgM Ab Non-reactive (Nonreactive) Blood Type AB Negative Antibody Screen Positive Antibody Identification Anti-D Anti-D Antigen Identification Not Reportable TONJA, IgG Interpret Not Performed TONJA, Poly Interpret Neg Neg TONJA, Complement Interp Not Performed Patient hx anesthesia problems: none Family hx anesthesia problems: none Results Review: All pre-operative results and documents have been reviewed as part of the pre- operative evaluation. [facility] Past Medical History Medical History Anxiety Irritable bowel syndrome (IBS) Surgical History Surgical History History of delivery Family History Family History Father Diabetes mellitus Mother Anemia Grandparent Diabetes mellitus Social History Social History Smoking status: Never smoker Second hand tobacco smoke exposure: No Substance use: never Lack of Transportation: No Lack of Food: Never True Current Housing: I Have Housing Concerned About Future Housing: No Difficulty Paying Gas/Electric Bills: No Difficulty Paying for Meds: No Currently Unemployed: No Education: High School Diploma/GED Difficulty w/ Childcare or Family Care: No Spiritual care concerns: No Anes - Eval Final PreProcedure Day of Procedure 11/13/24 13:01 Patient weight: overweight Heart: regular rate and rhythm Lungs: clear to auscultation Neurological: alert and oriented ASA classification: II Emergent: no Anesthetic plan: proceed Anesthesia type and monitoring: regional epidural and standard monitoring Results Review: All pre-operative results and documents have been reviewed as part of the pre- operative evaluation. Informed Consent: The patient's anesthetic plan and its attendant risks and benefits were discuss ed with the patient/family/POA. Questions were solicited and answers provided to the satisfaction of the patient/family/POA.
--- NOTE | 2024-11-13 17:11 | P.PCNOB_ITS ---
OB - Vaginal Delivery Note Procedure Delivery date: 11/13/24 Events: Previous Delivery Induction method: Per Pitocin Protocol Delivery augmentation: Rupture of Membranes Delivery monitor: External FHT, External Uterine and Internal Uterine Route of delivery: Episiotomy description: None Laceration Description: Periurethral and Perineal - 2nd Degree Delivery repair: vicryl (3-0 vicryl) Specimen: Yes (cord blood) Quantitative Blood Loss (ml): 350 Anesthesia type: Epidural Disposition: PACU Complications: None Narrative: 29 y/o at 37 6/7 weeks gestation with a prior , strongly desiring TOLAC, who presented to the hospital for induction of labor. Oxytocin was administered intravenously. She was given ampicillin for GBS bacteruria. Amniotomy was performed with return of clear fluid. She received an epidural for pain control. Her labor progressed and her cervix dilated completely. She pushed with good effort and delivered the infant's head to the perineum, followed by the body. The nose and mouth were bulb suctioned. After a delay, the cord was clamped and cut. The was handed off the field. Cord blood was collected. The placenta delivered spontaneously and was grossly normal in appearance. The usual 3 vessel cord was noted. A second degree midline perineal laceration was sustained. This was reapproximated using 3 0 Vicryl in the usual layered fashion. Shallow bilateral periurethral lacerations did not require repair. Excellent hemostasis resulted as did excellent reapproximation of the normal anatomy. Needle and instrument counts were correct. The patient was taken to recovery room in stable condition. The went to the special care nursery. I was present and scrubbed for the entire delivery. [place] Baby Date of : 11/13/24 Time of : 16:37 Gestational Age by Date: 37 gender: Male Weight (pounds): 8 Weight (ounces): 5 presentation: vertex position: Left Occiput Anterior Placenta delivery description: Spontaneous and Normal Configuration Cord Vessel Description: 3 Vessels and Delayed Cord Clamping score one minute: 8 score five minutes: 8
--- NOTE | 2024-11-13 17:14 | PM.OBDSVD ---
DS: Admitting Diagnosis Discharge Date 11/15/24 Admitting Diagnosis IUP at 37 6/7 weeks Oligohydramnios Prior , desires TOLAC GBS bacteruria DS: Discharge Diagnosis Discharge Diagnosis (1) , delivered: Code(s): O34.219 - Maternal care for unspecified type scar from previous delivery Status: Acute (2) GBS bacteriuria: Code(s): R82.71 - Bacteriuria Status: Acute OB - DS: Summary OB Procedures : NST OB Procedures Intrapartum: and GBS prophylaxis OB Procedures: : None Peripartum Data Laceration Description: Periurethral and Perineal - 2nd Degree Episiotomy description: None Time Spent with Patient Time attestation: Total time spent providing and/or coordinating discharge services: DS: Data Data Completed and Pending Labs on day of discharge: Labs from last 24 hours 11/13/24 11/13/24 11/13/24 07:17 07:17 07:17 WBC 10.6 H RBC 3.49 L Hgb 9.6 L Hct 29.8 L MCV 85.4 MCH 27.5 MCHC 32.2 RDW 12.8 Plt Count 175 MPV 10.5 H Immature Gran % (Auto) 0.8 H Neut % (Auto) 68.4 Lymph % (Auto) 21.0 [place] % (Auto) 6.9 Eos % (Auto) 2.7 Baso % (Auto) 0.2 Lymph # (Auto) 2.23 [place] # (Auto) 0.7 H Eos # (Auto) 0.3 Baso # (Auto) 0.0 Abs Immat Gran (auto) 0.09 H Absolute Neuts (auto) 7.3 H Absolute Nucleated RBC 0.000 Nucleated RBC % 0.0 Syphilis IgG/IgM Ab Non-reactive Blood Type AB Negative Antibody Screen Positive Antibody Identification Anti-D Anti-D Antigen Identification Not Reportable TONJA, IgG Interpret Not Performed TONJA, Poly Interpret Neg Neg TONJA, Complement Interp Not Performed Discharge Plan Discharge Attending physician on discharge: Mayur Tinoco Discharging Clinician: Mauyr Tinoco Patient Disposition: Home Activity: pelvic rest Diet: regular Discharge Instructions: Education: Mom and Baby Guide Given to: Mother Follow-Up: Call your delivering provider's office for an appointment to be seen in: 6 Weeks Mom and baby should come to the [facility] for the follow-up appointment. Appointment Date/Time: November 17, 2024 at 11:00 am What to expect at your follow-up visit: Blood Pressure Check Physical Assessment Call [phone] if you are unable to keep your appointment time. BREAST CARE: * Wear a snug supportive bra. * For engorgement discomfort: Breast Feeding: * Apply warm moist washcloths * Express milk as needed to relieve engorgement * Wear loose clothing Bottle Feeding: * May apply ice packs * For sore nipples: * Identify correct latch-on * Apply warm moist washcloths before and after nursing * Air dry nipples after nursing * May apply Lansinoh cream to nipples EPISIOTOMY/PERINEAL CARE: * Until bleeding stops, use your ita bottle after urinating * Change your pad frequently throughout the day * You may take sitz baths several times a day (fill your bathtub with warm water and soak for 20 minutes.) Do NOT bathe in the water * No tub baths until seen by your physician - You may shower ACTIVITY: * Rest as much as possible. * Do not exercise or lift anything heavier than your baby (such as laundry or other children.) * Avoid stairs or driving as much as possible. * Do not put anything into the vagina. No douching, tampons, or sexual activity until seen by physician. NOTIFY PHYSICIAN IF YOU HAVE ANY QUESTIONS OR IF ANY OF THE FOLLOWING SYMPTOMS OCCUR: * If your vaginal bleeding becomes foul smelling. * If your vaginal bleeding becomes more heavy than a period or if your bleeding changes from pink to bright red. However, you may pass an occasional walnut-sized clot once or twice for the first week . * If you experience a sharp, shooting pain in you calves. * If you discover a hard, reddened area on your breast or if you experience flu-like symptoms. DIET: * Eat regular, well-balanced meals. * Drink plenty of fluids daily. If , drink to thirst. Call or return if temperature above 100.4? F, increased abdominal pain, increased vaginal bleeding or any new problems. Patient Language: American Stand Alone Forms: General Discharge Information Follow-up/Referrals: Mayur Tinoco MD [Physician, WINCHMAN/CRANE OPERATOR] - 6 Weeks Discharge Medications: New ibuprofen 600 mg tablet 600 mg PO Q6H PRN (Reason: cramps) Qty: 30 0RF ferrous sulfate 325 mg (65 mg iron) tablet 325 mg PO DAILY Qty: 30 0RF Continued Tylenol Extra Strength 500 mg powder in packet 500 mg PO Q6H PRN (Reason: pain) PNV [id number] acid 30-975 mg-mcg Tablet 1 tablet PO DAILY Date of admission: 11/13/24 06:33 Primary Care Provider: PHYSICIAN,BREAST TRIMMER Admitting Provider: Luna Tinoco Attending physician on admission: Mayur Tinoco Condition: Stable
[2024-11-13] MEDS: OXYTOCIN 30 UNITS/NS 500 ML 30 UNITS/500 ML BAG 125 UNITS IV CONT (17:15)
[2024-11-13] MEDS: IBUPROFEN 600 MG TABLET PO (18:21)
--- NOTE | 2024-11-13 20:12 | OBPPTRN ---
Patient transferred to post room #290 via wheelchair @ 20:11. Support person present. Oriented to unit, room, information board, rooming in, admission packet and security measures. Patient verbalizes understanding.
[2024-11-13] MEDS: ACETAMINOPHEN 325 MG TABLET 650 MG PO (20:40)
[2024-11-14] MEDS: IBUPROFEN 600 MG TABLET PO ×3 (00:19→21:00)
[2024-11-14] MEDS: DOCUSATE SODIUM 100 MG CAPSULE PO ×3 (00:22→16:20)
[2024-11-14 00:24] VITALS: BP 113/65; PULSE 92; RESP 16; TEMP 36.3; O2SAT 100
[2024-11-14] MEDS: WITCH HAZEL 40 PADS 1 PAD TOPICAL ×2 (00:24→16:27)
[2024-11-14] MEDS: LANOLIN (LANSINOH) 7.5 GM CREAM 1 APPLIC TOPICAL (00:24)
[2024-11-14] MEDS: BENZOCAINE 20% AER SPR (*SP) 56 GM CAN 1 SPRAY TOPICAL (00:24)
[2024-11-14] MEDS: ACETAMINOPHEN 325 MG TABLET 650 MG PO ×3 (04:01→23:17)
[2024-11-14 05:07] LABS: Hematocrit 26.1 % (37.0-47.0); Hemoglobin 8.2 g/dL (12.0-15.0)
[2024-11-14 07:30] VITALS: BP 109/64; PULSE 100; RESP 18; TEMP 37.1; O2SAT 100
[2024-11-14] MEDS: MULTIVIT/MIN/PREN/FOL AC/IRON TABLET 1 TAB PO (08:19)
--- NOTE | 2024-11-14 09:45 | PC.NURSE ---
Met with patient regarding needs. She is pumping due to baby being in level 2. She has attempted to breastfeed but was unable. Hands on pumping handout provided. Baby is supplemented with formula and small amounts of colostrum after attempts. Mom is consistent with pumping and will continue to attempt to breastfeed as baby is able. Patient will call for any other assistance needed. Primary RN updated.
[2024-11-14 12:40] VITALS: BP 108/67; PULSE 100; RESP 16; TEMP 37.1; O2SAT 100
--- NOTE | 2024-11-14 13:05 | WPDANLDPN2 ---
Anes-Prog Note L&D Date/Time: 11/14/24 13:05 Comfortable throughout: labor and delivery Neuraxial method: epidural Epidural/Spinal procedure site: clean & non-tender Neuro status: Neuro function grossly intact. Cardiovascular status: normal Respiratory status: normal Airway patency: baseline Mental status: baseline Post-Op hydration status: normal Vital Signs: Last Vital Signs Temp 37.1 C 11/14/24 12:40 Pulse 100 11/14/24 12:40 Resp 16 11/14/24 12:40 BP 108/67 11/14/24 12:40 Pulse Ox 100 11/14/24 12:40 O2 Del Method Room Air 11/13/24 07:25 Pain score (VAS): 1 I/O: Intake & Output 11/13/24 11/14/24 11/14/24 23:59 07:59 15:59 Output Total 450 Balance -450 Post-procedural complaints: none Patient feedback: Patient satisfied with anesthetic care.
--- NOTE | 2024-11-14 15:50 | P.PNOB_ITS ---
OB - PN: Subj Subjective Date/time seen: 11/14/24 12:40 Narrative: Pain OK. OB - PN: Obj Data Labs 11/14/24 04:00 Labs: Laboratory Results - last 24 hr 11/13/24 11/13/24 11/14/24 07:17 07:17 04:00 Hgb 8.2 L Hct 26.1 L Blood Type AB Negative Antibody Screen TNP Antibody Identification Passive Due to RH Imm Glob Cancelled Antigen Identification Cancelled TONJA, IgG Interpret Cancelled TONJA, Poly Interpret Cancelled TONJA, Complement Interp Cancelled Screen Negative Baby's Blood Type A pos Baby's TONJA Negative Doses of RhIg Required 1 OB - PN A/P Plan day: 1 Comments: A: PPD#1, doing well. Desires circumcision for son. P: Reviewed circ. Routine care. Exam 2 Psych: Other: AVSS ABD soft, nontender, fundus firm EXT nontender
[2024-11-14 16:00] VITALS: BP 128/87; PULSE 94; RESP 18; TEMP 36.7; O2SAT 100
[2024-11-14] MEDS: RHO(D) IMMUNE GLOBULIN 300 MCG/2 ML SYRINGE IM (16:15)
[2024-11-14 20:55] VITALS: BP 120/74; PULSE 94; RESP 16; TEMP 36.4; O2SAT 100
[2024-11-15] MEDS: IBUPROFEN 600 MG TABLET PO ×2 (05:13→13:30)
[2024-11-15 08:10] VITALS: BP 136/75; PULSE 92; RESP 16; TEMP 36.9; O2SAT 100
[2024-11-15] MEDS: DOCUSATE SODIUM 100 MG CAPSULE PO (08:11)
[2024-11-15] MEDS: MULTIVIT/MIN/PREN/FOL AC/IRON TABLET 1 TAB PO (08:11)
[2024-11-15] MEDS: ACETAMINOPHEN 325 MG TABLET 650 MG PO ×2 (08:12→16:00)
--- NOTE | 2024-11-15 08:45 | PC.NURSE ---
Mother verbalizes she is able to independently latch with appropriate positioning and alignment. She denies any nipple discomfort and is responsively . Per mother she is supplementing with formula after since infant is still on blood sugar checks and then using her breast pump if does not effectively feed at the breast. Infant is currently meeting outcomes for weight, output, jaundice, blood sugar and feeding frequencies of 8-12 times in 24 hours. Mother declines any additional assistance or education at this time. Mother is encouraged to call for assistance if her infant doesn?t latch, pain with latching, questions or concerns. Mother voiced understanding of information shared along with the mom/baby guide for an additional resource. Reported to the Primary RN.
--- NOTE | 2024-11-15 09:04 | P.PNOB_ITS ---
OB - PN: Subj Subjective Date/time seen: 11/15/24 09:04 Narrative: Pain OK. Would like to go home. OB - PN: Obj Data Labs 11/14/24 04:00 Labs: Laboratory Results - last 24 hr 11/13/24 11/13/24 11/14/24 07:17 07:17 04:00 Blood Type AB Negative Antibody Screen TNP Antibody Identification Passive Due to RH Imm Glob Cancelled Antigen Identification Cancelled TONJA, IgG Interpret Cancelled TONJA, Poly Interpret Cancelled TONJA, Complement Interp Cancelled Screen Negative Baby's Blood Type A pos Baby's TONJA Negative Doses of RhIg Required 1 OB - PN A/P Plan Comments: A: PPD#2, doing well. P: Home to f/u 6 weeks. Exam 2 Psych: Other: AVSS ABD soft, nontender, fundus firm EXT nontender
[2024-11-17 11:21] VITALS: BP 123/81; PULSE 95; RESP 18; TEMP 36.7; O2SAT 100
== END 2024-11-15 17:54 | disposition home or self-care (01) | DRG 807 ==
LOC: ANHLDR 17:16 → ANHOB2 20:51
PROVIDERS: Admitting Provider Obstetrics & Gynecology; Visit Provider Obstetrics & Gynecology
DX: O41.03X0 Oligohydramnios, third trimester, not applicable or unspecified (principal); Z37.0 Single live birth; Z3A.37 37 weeks gestation of pregnancy; O34.211 Maternal care for low transverse scar from previous cesarean delivery; O70.1 Second degree perineal laceration during delivery; O99.824 Streptococcus B carrier state complicating childbirth; O71.82 Other specified trauma to perineum and vulva
CPT/HCPCS: 36415; 85014; 85018; 85025; 85461; 86593; 86850; 86880; 86900; 86901; 86902; 90384; A9270; J0290; J2590; J2790; J2795; J7120